=== PATIENT | female | born 1965 | race African-American/Black ===

== ENCOUNTER 2018-03-02 02:38 | Emergency (ER) | payer SELFPAY ==
[~2018-03-02] VITALS: Ht 167.6 cm; Wt 73.0 kg
[2018-03-02 02:43] VITALS: BP 155/100
== END 2018-03-02 05:20 | disposition left against medical advice (07) ==
LOC: ER 02:38
DX: Z53.21 Procedure and treatment not carried out due to patient leaving prior to being seen by health care provider (principal)